=== PATIENT | male | born 1995 | race Caucasian/White ===

== ENCOUNTER 2020-09-26 13:28 | Emergency (ER) | payer SELFPAY ==
[~2020-09-26] VITALS: Ht 180.3 cm; Wt 165.6 kg
[2020-09-26 13:35] VITALS: BP 132/88
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
[2020-09-26] MEDS ORDERED: IBUPROFEN 800 MG (MOTRIN) TAB PO ONE (14:00)
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
== END 2020-09-26 15:05 | disposition home or self-care (01) ==
LOC: ER 13:30
DX: S22.31XA Fracture of one rib, right side, initial encounter for closed fracture (principal); S20.211A Contusion of right front wall of thorax, initial encounter; E66.9 Obesity, unspecified; Z68.43 Body mass index [BMI] 50.0-59.9, adult; V49.9XXA Car occupant (driver) (passenger) injured in unspecified traffic accident, initial encounter
CPT/HCPCS: 71046; 71100